=== PATIENT | female | born 1990 | race Hispanic/Latino ===

== ENCOUNTER 2016-12-10 08:34 | Emergency (ER) | payer OTHER ==
[~2016-12-10 08:34] MED LIST: BENTYL20 MG PO; MEDROL DOSEPAK1 PAC PO; NAPROSYN375 MG PO; PROVENTIL0.09 MG/A1 INH; TESSALON PERLE100 MG PO; ZITHROMAX Z-PA250 M1 PO; ZOFRAN4 M1 PO
[2016-12-10 08:41] VITALS: BP 138/88
[2016-12-10] MEDS ORDERED: DICYCLOMINE HCL20 M1 PO (08:54)
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
[2016-12-10] MEDS ORDERED: ONDANSETRON HCL4 MG PO (08:56)
[2016-12-10] MEDS ORDERED: NAPROXEN375 M2 PO (08:56)
[2016-12-10] MEDS ORDERED: SPIRIVA RESPIMAT4 G1 INH (08:57)
[2016-12-10] MEDS ORDERED: PREDNISONE20 M1 PO (08:57)
[2016-12-10] MEDS ORDERED: PROMETHAZINE-D118 ML PO (08:57)
[2016-12-10] MEDS ORDERED: HYDROCHLOROTHIA25 M1 PO (08:58)
[2016-12-10] MEDS ORDERED: ULTRAM50 M1 PO (09:01)
[2016-12-10] MEDS ORDERED: BACLOFEN10 M1 PO (09:01)
== END 2016-12-10 09:22 ==
LOC: ERH 08:34
DX: M79.1 Myalgia (principal); J45.909 Unspecified asthma, uncomplicated; V89.2XXA Person injured in unspecified motor-vehicle accident, traffic, initial encounter
CPT/HCPCS: 1263